=== PATIENT | female | born 1980 ===

== ENCOUNTER 2021-03-09 09:55 | Outpatient (CLI) | payer OTHER | END 2021-03-09 10:06 | disposition home or self-care (01) | LOC: TOM 09:55 | PROVIDERS: ATTEND Surgery | DX: K63.5 Polyp of colon (principal); K57.20 Diverticulitis of large intestine with perforation and abscess without bleeding ==

== ENCOUNTER 2021-04-06 11:45 | Inpatient (IN) | payer OTHER ==
[~2021-04-06] VITALS: Ht 157.5 cm; Wt 58.5 kg
[2021-04-08] MEDS ORDERED: VITAMIN D310 MCG/1 M (13:01)
[2021-04-08] MEDS ORDERED: AVIANE-28 TABL1 EACH (13:01)
[2021-04-11] MEDS ORDERED: NEURONTIN300 MG PO (13:10)
[2021-04-11] MEDS ORDERED: ALBUTEROL2.5 MG/3 M IH (13:10)
== END 2021-04-11 15:34 | disposition home or self-care (01) | DRG 331 ==
LOC: O/R 04-08 06:00 → SURH 04-08 06:00
PROVIDERS: ADMIT Surgery; ATTEND Surgery
PROC: 0DTP4ZZ Resection of Rectum, Percutaneous Endoscopic Approach (ICD-10-PCS; 2021-04-08)
PROC: 0UB04ZZ Excision of Right Ovary, Percutaneous Endoscopic Approach (ICD-10-PCS; 2021-04-08)
PROC: 0W9J0ZZ Drainage of Pelvic Cavity, Open Approach (ICD-10-PCS; 2021-04-08)
PROC: 0DJD8ZZ Inspection of Lower Intestinal Tract, Via Natural or Artificial Opening Endoscopic (ICD-10-PCS; 2021-04-08)
PROC: 0DBN4ZZ Excision of Sigmoid Colon, Percutaneous Endoscopic Approach (ICD-10-PCS; principal; 2021-04-08 08:45)
DX: K57.20 Diverticulitis of large intestine with perforation and abscess without bleeding (principal); N70.92 Oophoritis, unspecified